=== PATIENT | male | born 1990 | race African-American/Black ===

== ENCOUNTER 2019-11-13 07:36 | Emergency (ER) | payer SELFPAY ==
[2019-11-13 07:50] VITALS: BP 149/96; PULSE 107; RESP 18; TEMP 36.7; O2SAT 100
--- NOTE | 2019-11-13 07:52 | ED_ITS ---
HPI - Dental/Oral General Chief complaint: Dental/Oral Stated complaint: left facial swelling Time Seen by Provider: 11/13/19 07:44 History of Present Illness HPI Narrative: Swelling over the opening of the left nares for a few days now spreading up the left cheek. Associated with severe pain. No fever or systemic symptoms. Related Data Allergies Allergy/AdvReac Type Severity Reaction Status Date / Time No Known Allergies Allergy Verified 11/13/19 07:52 Review of Systems Review of Systems: All systems reviewed & are unremarkable except as noted in HPI and below Exam Const: General: healthy appearing, no acute distress and alert O rientation/consciousness: patient oriented x3 HENMT: Other: Severe tooth decay and erythema of the gums in several locatio ns. Swelling and tenderness from the filtrum to the left infraorbital region. Eyes: Conjunctivae: conjunctivae normal Pupils: Equal, round and reactive pupils present EOM: EOMs intact bilaterally Course Vital Signs Vital signs: Vital Signs Temperature 36.7 C 11/13/19 07:50 Pulse Rate 107 H 11/13/19 07:50 Respiratory Rate 18 11/13/19 07:50 Blood Pressure 149/96 H 11/13/19 07:50 Pulse Oximetry 100 11/13/19 07:50 Temperature 36.7 C 11/13/19 07:50 Pulse Rate 80 11/13/19 10:30 Respiratory Rate 16 11/13/19 10:30 Blood Pressure 140/82 11/13/19 10:30 Pulse Oximetry 98 11/13/19 10:30 Procedures Nerve Block Nerve Block 1: Local Anesthetic: lidocaine 1% and with epi Amount of anesthesia used (mL): 4 Side: left Intraoral Nerve Block: infraorbital Procedure Successful: Yes Complications: pain with procedure Additional Comments: After nerve block he refused I&D or an further procedures Other Procedure Procedure 1: Other Procedure: I performed bedside ultrasound showing periapical fluid collection at tooth 8 Discharge Plan Discharge Clinical Impression: Dental abscess Patient Disposition: Home, Self-Care Condition: Stable Instructions: Antibiotic Form, Dental Abscess (ED) Additional Instructions: Follow-up with a dentist within the next week Prescriptions: New amoxicillin-pot clavulanate [Augmentin] 875-125 mg tablet 1 tablet PO Q12H Qty: 20 RF: 0 Follow-up/Referrals: PHYSICIAN,[employer] [facility]IST [Primary Care Provider] - Discharge Date/Time: 11/13/19 10:30
[2019-11-13] MEDS: AMOXICILLIN/CLAVULANATE K 875-125 MG TAB 1 TABLET PO (08:29)
[2019-11-13] MEDS: KETOROLAC (*BKC) 60 MG/2 ML VIAL IM (10:28)
[2019-11-13 10:30] VITALS: BP 140/82; PULSE 80; RESP 16; O2SAT 98
== END 2019-11-13 10:30 | disposition home or self-care (01) ==
PROVIDERS: Emergency Provider Emergency Medicine
DX: K04.7 Periapical abscess without sinus (principal)
CPT/HCPCS: 64999; 96372; 99283; A9270; J1885